=== PATIENT | female | born 1970 | race Caucasian/White ===

== ENCOUNTER 2019-03-26 18:43 | Emergency (ER) | payer BC ==
[~2019-03-26] VITALS: Ht 160 cm; Wt 72.0 kg
[2019-03-26 18:50] VITALS: Ht 160 cm; Wt 72.0 kg
[2019-03-26] MEDS ORDERED: SOD CHLORIDE 0.9% 1,000 ML IV STA (18:55)
--- NOTE | 2019-03-26 21:24 | ERD ---
ER Documentation Chief Complaint Chief Complaint bib ra for hypotension during plasma donation HPI 49-year-old female brought in by ambulance for dizziness and low blood pressure after plasma donation. She states that she was feeling very nauseated and lightheaded. She was given some IV fluids prior to arrival with some improveme nt of her symptoms. She denies any associated chest pain, shortness of breath, headache nausea or vomiting. ROS All systems reviewed and are negative except as per history of present illness. Allergies Allergies: Coded Allergies: Sulfa (Sulfonamide Antibiotics) (Verified Allergy, Severe, 03/26/19) ciprofloxacin (Verified Allergy, Severe, 03/26/19) PMhx/Soc Medical and Surgical Hx: pt denies Medical Hx, pt denies Surgical Hx Hx Psychiatric Problems: Yes (ptsd, depression) Hx Alcohol Use: No Hx Substance Use: No Hx Tobacco Use: No Smoking Status: Never smoker FmHx Family History: No diabetes Physical Exam Vitals Vital Signs Date Temp Pulse Resp B/P (MAP) Pulse Ox O2 O2 Flow FiO2 Time Delivery Rate 03/26/19 57 16 121/81 100 Room Air 22:30 (94) 03/26/19 57 16 119/70 99 Room Air 21:17 (86) 03/26/19 98.7 45 19 106/75 100 Room Air 18:51 (85) 03/26/19 98.7 60 19 101/74 100 18:50 (83) Physical Exam Const: No acute distress, nontoxic-appearing Head: Atraumatic Eyes: Normal Conjunctiva, PERRLA, EOMI, no nystagmus ENT: Dry mucous membranes. Normal External Ears, Nose and Mouth. Neck: Full range of motion. No meningismus. Resp: Clear to auscultation bilaterally Cardio: Bradycardic with regular rhythm, no murmurs. 2+ distal pulses Abd: Soft, non tender, non distended. Normal bowel sounds Skin: No petechiae or rashes Back: No midline or flank tenderness Ext: No cyanosis, or edema Neur: Awake and alert, oriented x3, normal speech, no facial asymmetry, cranial nerves intact, strength and sensations intact in all 4 extremities Psych: Normal Mood and Affect Result Diagram: 03/26/19190603/26/191906 Results 24 hrs Laboratory Tests Test 03/26/19 19:07 White Blood Count 4.7 10^3/ul Red Blood Count 3.89 10^6/ul Hemoglobin 11.9 g/dl Hematocrit 36.1 % Mean Corpuscular Volume 92.8 fl Mean Corpuscular Hemoglobin 30.6 pg Mean Corpuscular Hemoglobin Concent 33.0 g/dl Red Cell Distribution Width 13.2 % Platelet Count 141 10^3/UL Mean Platelet Volume 11.9 fl Immature Granulocytes % 0.200 % Neutrophils % 54.0 % Lymphocytes % 34.4 % Monocytes % 8.6 % Eosinophils % 1.9 % Basophils % 0.9 % Nucleated Red Blood Cells % 0.0 /100WBC Immature Granulocytes # 0.010 10^3/ul Neutrophils # 2.5 10^3/ul Lymphocytes # 1.6 10^3/ul Monocytes # 0.4 10^3/ul Eosinophils # 0.1 10^3/ul Basophils # 0.0 10^3/ul Nucleated Red Blood Cells # 0.0 10^3/ul Sodium Level 137 mmol/L Potassium Level 4.0 mmol/L Chloride Level 107 mmol/L Carbon Dioxide Level 25 mmol/L Anion Gap 5 Blood Urea Nitrogen 21 mg/dl Creatinine 0.79 mg/dl Est Glomerular Filtrat Rate mL/min > 60 mL/min Glucose Level 120 mg/dl Calcium Level 8.8 mg/dl Troponin I < 0.012 ng/ml Serum HCG, Qualitative NEGATIVE Current Medications Medications Dose Sig/Katharine Start Time Status Last (Trade) Ordered Route PRN Stop Time Admin Dose Reason Admin Sodium 1,000 ml @ Q1H STAT 03/26/19 DC 03/26/19 Chloride 1,000 mls/hr IV 18:55 19:08 03/26/19 19:54 Ondansetron 4 mg ONCE STAT 03/26/19 DC 03/26/19 HCl (Zofran ODT 21:30 21:52 Odt) 03/26/19 21:39 Procedures/MDM EMERGENT LABS AND DIAGNOSTIC STUDIES: Lab Results above were reviewed and interpreted by me. CBC: no clinically significant anemia or evidence of infection BMP: mild BUN elevation, likely prerenal azotemia due to dehydration. No evidence of clinically significant electrolyte abnormality, acidosis, renal failure, hypoglycemia Troponin within normal limits, not indicative of cardiac ischemia Preg negative 12-lead EKG was interpreted by Ana Cristina Alvarez MD: Sinus bradycardia with ventricular rate of 49 beats per minute Normal axis Normal intervals No acute ST or T wave changes suggestive of acute ischemia or STEMI. Initial Nursing notes reviewed. Previous Medical Records requested via the Electronic Health Record. EMERGENCY DEPARTMENT COURSE / MEDICAL DECISION MAKING: Patient is presenting after near syncopal episode after donation of blood products. She was hypotensive in the field but this has improved with IV fluids. I do not suspect serious etiology. Work-up was unremarkable. I believe this was orthostatic in nature. She did improve with medications given here. I feel the patient is stable for discharge. Return precautions given. Patient's blood pressure was elevated (>120/80) but appears stable without evidence of hypertensive emergency or urgency. The patient was counseled about the risks of hypertension and urged to pursue outpatient monitoring and therapy within a week with their primary care physician. Departure Diagnosis: Primary Impression: Postural dizziness with near syncope Condition: Stable Patient Instructions: Near Syncope, Vasovagal EKFLORENCIA KNUTSON MD March 26, 2019 21:24
[2019-03-26] MEDS ORDERED: ONDANSETRON (ODT) 4 MG TAB ODT STA (21:30)
[2019-03-26 22:30] VITALS: BP 121/81; PULSE 57; RESP 16
--- NOTE | 2019-03-28 11:58 | RADRPT ---
Vent Rate: 49 bpm RR Interval: 0 msec [place] Interval: 120 msec QRS Duration: 88 msec QT Interval: 484 msec QTC Interval: 437 msec P-R-T Buena: 57 - 41 - 69 degrees Marked sinus bradycardia Abnormal ECG Electronically Signed By: *[facility]
== END 2019-03-26 22:31 | disposition home or self-care (01) ==
LOC: E/R 18:43
DX: R55 Syncope and collapse (principal)
CPT/HCPCS: 36415; 80048; 84484; 84703; 85025; 93005; 99284; J7030